=== PATIENT | female | born 1945 | race Caucasian/White ===

== ENCOUNTER 2020-04-20 12:58 | Inpatient (IN) | payer MEDICARE, BC ==
--- NOTE | 2020-04-20 14:12 | ER Document Report ---
ED Medical Screen (RME) - General Chief Complaint: Chest Pain Stated Complaint: CHEST PAIN Time Seen by Provider: 04/20/20 14:02 Primary Care Provider: CINDY SCHUSTER [Primary Care Provider] - Follow up as needed Mode of Arrival: Ambulatory Information source: Patient Notes: 75-year-old female presented to ED for chest pain that started at 1145 this morning. She states he went through her shoulder upper jaw upper neck. She states she is feeling better now. She states she was nauseated earlier but she is not nauseated now because she took some Zofran. She is on a blood thinner for TIA. She does have a history of high blood pressure and cholesterol. Use of cigarettes alcohol or tobacco. She is here with her . Patient is alert oriented respirations regular nonlabored speaking in full sentences. She is in a wheelchair at this time. I have asked the nurse to go back and let the charge nurse know that this patient needs to go straight back with her symptoms at her age. I have greeted and performed a rapid initial assessment of this patient. A comprehensive ED assessment and evaluation of the patient, analysis of test results and completion of medical decision making process will be conducted by an additional ED providers. - Related Data Allergies/Adverse Reactions: codeine Allergy (Verified 04/20/20 13:44) Hives Physical Exam - Vital signs Vitals: Temp Pulse Resp BP Pulse Ox 98.0 F 72 16 152/89 H 98 04/20/20 13:04 04/20/20 13:04 04/20/20 13:04 04/20/20 13:04 04/20/20 13:04 Course - Vital Signs Vital signs: Temp Pulse Resp BP Pulse Ox 98.0 F 72 16 152/89 H 98 04/20/20 13:04 04/20/20 13:04 04/20/20 13:04 04/20/20 13:04 04/20/20 13:04 Doctor's Discharge - Discharge Referrals: CINDY SCHUSTER [Primary Care Provider] - Follow up as needed
[2020-04-20 15:07] LABS: ABSOLUTE EOSINOPHILS # (AUTO) 0.1 10^3/uL (0.0-0.6); ABSOLUTE LYMPHOCYTES (AUTO) 1.5 10^3/uL (0.5-4.7); ABSOLUTE MONOCYTES (AUTO) 0.5 10^3/uL (0.1-1.4); ABSOLUTE NEUT (AUTO) 4.7 10^3/uL (1.7-8.2); BASOPHILS % (AUTO) 0.7 % (0-2); EOSINOPHILS % (AUTO) 1.9 % (0-6); HEMATOCRIT 34.9 % (36.0-47.0); HEMOGLOBIN 12.2 g/dL (12.0-15.5); LYMPHOCYTES % (AUTO) 21.5 % (13-45); MEAN CORPUSCULAR HEMOGLOBIN 31.7 pg (27.0-33.4); MEAN CORPUSCULAR HGB CONC 34.9 g/dL (32.0-36.0); MEAN CORPUSCULAR VOLUME 91 fl (80-97); MONOCYTES % (AUTO) 6.7 % (3-13); PLATELET COUNT 206 10^3/uL (150-450); RED BLOOD COUNT 3.85 10^6/uL (3.72-5.28); SEGMENTED NEUTROPHILS % (AUTO) 69.2 % (42-78); TOTAL CELLS COUNTED % (AUTO) 100 %; WHITE BLOOD COUNT 6.8 10^3/uL (4.0-10.5)
--- NOTE | 2020-04-20 15:21 | RADIOLOGY REPORT (SQ) ---
EXAM DESCRIPTION: CHEST 2 VIEWS IMAGES COMPLETED DATE/TIME: 04/20/2020 3:12 pm REASON FOR STUDY: chest pain COMPARISON: None. EXAM PARAMETERS: NUMBER OF VIEWS: two views TECHNIQUE: Digital Frontal and Lateral radiographic views of the chest acquired. RADIATION DOSE: NA LIMITATIONS: none FINDINGS: LUNGS AND PLEURA: Lung juarez are hyperexpanded with increase in the retrosternal airspace . No consolidation or effusions. MEDIASTINUM AND HILAR STRUCTURES: No masses or contour abnormalities. HEART AND VASCULAR STRUCTURES: Heart normal size. No evidence for failure. BONES: No acute findings. HARDWARE: None in the chest. OTHER: No other significant finding. IMPRESSION: COPD. No acute findings. TECHNICAL DOCUMENTATION: JOB ID: [id number] 2010 [employer]- All Rights Reserved Reading location - IP/workstation name: [email or web address]
[2020-04-20 15:24] LABS: ALBUMIN 4.9 g/dL (3.5-5.0); ALKALINE PHOSPHATASE 70 U/L (38-126); ANION GAP 9 (5-19); ASPARTATE AMINO TRANSFERASE 33 U/L (14-36); BILIRUBIN,TOTAL 0.3 mg/dL (0.2-1.3); BLOOD UREA NITROGEN 23 mg/dL (7-20); CALCIUM 9.9 mg/dL (8.4-10.2); CARBON DIOXIDE 23 mmol/L (22-30); CHLORIDE 101 mmol/L (98-107); CREATINE KINASE 149 U/L (30-135); GLUCOSE 101 mg/dL (75-110); POTASSIUM 5.6 mmol/L (3.6-5.0); TOTAL PROTEIN 7.3 g/dL (6.3-8.2)
[2020-04-20] MEDS ORDERED: LIDOCAINE 2% VISCOUS SOLN 15 ML UDCUP PO ONE (15:34)
[2020-04-20] MEDS ORDERED: MAG HYDROX/AL HYDROX/SIMETH SUSP 30 ML UDCUP PO ONE (15:34)
[2020-04-20] MEDS ORDERED: NORMAL SALINE 1000 ML 1,000 ML IV ONE ×2 (15:35→15:45)
[2020-04-20 15:36] LABS: CREATINE KINASE MB 9.75 ng/mL (<4.55)
[2020-04-20 15:39] LABS: TROPONIN I 2.22 ng/mL
[2020-04-20] MEDS ORDERED: ENOXAPARIN SODIUM INJ 80 MG/0.8 ML DISP.SYRIN SUBCUT ONE (15:47)
--- NOTE | 2020-04-20 15:58 | ER Document Report ---
Entered by JEOVANY VILLAFANA SCRIBE 04/20/20 1540 Acting as scribe for:COURTNEY NELSON MD ED General - General Chief Complaint: Chest Pain Stated Complaint: CHEST PAIN Time Seen by Provider: 04/20/20 14:02 Mode of Arrival: Ambulatory Information source: Patient Notes: This 75 year old female patient presents to the emergency department today with complaints of chest pain which began this morning at 11:45 AM. She reports that she was sitting down when her pain began and she had not done anything exertional prior to the pain beginning. Patient reports that the pain remained constant for about an hour and a half and it seemed to radiate into her upper back, across her shoulder blades, into her neck and the left lower jaw. Patient took a BC with aspirin and caffeine prior to arrival. Patient is on Plavix and has been for the last 3 to 4 years due to prior TIA. Patient has had nausea and what she describes as a migraine headache for the last 4 days. Patient denies vomiting. The patient took "a little bit" of a [employer] extra strength headache powder on the way to the hospital. 1 complete powder contains 520 mg of aspirin. - Related Data Allergies/Adverse Reactions: codeine Allergy (Verified 04/20/20 13:44) Hives Past Medical History - General Information source: Patient - Social History Smoking Status: Never Smoker Cigarette use (# per day): No Frequency of alcohol use: None Drug Abuse: None Lives with: Family Family History: Reviewed & Not Pertinent - Past Medical History Cardiac Medical History: Reports: Hx Hypercholesterolemia, Hx Hypertension Neurological Medical History: Reports: Hx Migraine, Other - TIA Past Surgical History: Reports: Hx Cholecystectomy, Hx Hysterectomy, Other - Lumbar disectomy. Left lower lobe resection. Brain surgery for benign tumor Review of Systems - Review of Systems Constitutional: No symptoms reported EENT: No symptoms reported Cardiovascular: See HPI, Chest pain Respiratory: No symptoms reported Gastrointestinal: See HPI, Nausea. denies: Vomiting Genitourinary: No symptoms reported Female Genitourinary: No symptoms reported Musculoskeletal: No symptoms reported Skin: No symptoms reported Hematologic/Lymphatic: No symptoms reported Neurological/Psychological: See HPI, Headaches -: Yes All other systems reviewed and negative Physical Exam - Vital signs Vitals: Temp Pulse Resp BP Pulse Ox 98.0 F 72 16 152/89 H 98 04/20/20 13:04 04/20/20 13:04 04/20/20 13:04 04/20/20 13:04 04/20/20 13:04 - Notes Notes: Physical Exam: General: Alert, appears well. HEENT: Normocephalic. Atraumatic. PERRL. Extraocular movements intact. Oropharynx clear. Neck: Supple. Non-tender. Respiratory: No respiratory distress. Clear and equal breath sounds bilaterally. Sternal and left parasternal chest wall tenderness with palpation. Cardiovascular: Regular rate and rhythm. Abdominal: Tenderness with palpation in the epigastrium. No distension. Normal Bowel Sounds. Back: No gross abnormalities. Extremities: Moves all four extremities. Upper extremities: Normal inspection. Normal ROM. Lower extremities: Normal inspection. No edema. Normal ROM. Neurological: Normal cognition. AAOx4. Normal speech. Psychological: Normal affect. Normal Mood. Skin: Warm. Dry. Normal color. Course - Re-evaluation Re-evalutation: 04/20/20 16:06 The patient reports that her epigastric pain is gone after the GI cocktail. On palpation there is no epigastric tenderness now. She has not had any chest pain since she got here. The patient reports she took all of her medications this morning including her Plavix. She also reported taking part of a [employer] extra strength headache powder so she may have had between 200 and 300 mg of aspirin. She will be given a dose of Lovenox 68mg. Her initial troponin was 2.21 04/20/20 18:39 The hospitalist for [facility] at first accepted the patient. Later the facility refused the patient because we were unable to do a rapid COVID test prior to transfer. Dr. Echevarria was consulted with [facility], and he stated that he would be able to do a cardiac catheterization at [place] tomorrow and she needed to be admitted to the hospitalist service and not take her Plavix after today. Dr. Oconnor from the hospitalist service at [facility] was contacted, he wanted to speak with Dr. Echevarria first, before agreeing to admit the patient here. 04/20/20 18:41 The repeat troponin came back at 7.76 04/20/20 19:01 Dr. Oconnor called back and stated that he would admit the patient to [facility]. - Vital Signs Vital signs: Temp Pulse Resp BP Pulse Ox 98.0 F 72 14 160/88 H 98 04/20/20 13:04 04/20/20 13:04 04/20/20 17:01 04/20/20 17:01 04/20/20 17:01 - Laboratory Result Diagrams: 04/20/20 14:48 04/20/20 14:48 Laboratory results interpreted by me: 04/20/20 04/20/20 04/20/20 14:48 14:48 14:48 Hct 34.9 L Sodium 132.7 L Potassium 5.6 H BUN 23 H Creatinine 1.46 H Est GFR ( Amer) 42 L Est GFR (MDRD) Non-Af 35 L Creatine Kinase 149 H CK-MB (CK-2) 9.75 H - Diagnostic Test Radiology reviewed: Image reviewed, Reports reviewed - Chest x-ray shows COPD, no acute findings. - EKG Interpretation by Me EKG shows normal: Sinus rhythm, Sheridan, Intervals. abnormal: QRS Complexes - Computer reads probable anteroseptal infarct of indeterminate age, and probable posterior infarct., ST-T Waves - ST depression noted in leads II and F and leads V3 through V5 Rate: Normal - 73 Rhythm: NSR When compared to previous EKG there are: Previous EKG unavailable Critical Care Note - Critical Care Note Total time excluding time spent on procedures (mins): 40 Comments: At least 40 minutes was spent in evaluating the patient getting history physical following lab work and repeat troponins which were climbing rapidly. Patient was discussed with the hospitalist at [facility], and the patient was accepted. The patient was then refused due to our inability to COVID test. The patient's care was then discussed with the hospitalist at [facility], and the topstitcher zigzag from [facility] who would be here in our [facility] tomorrow to do a cardiac catheterization. Patient was eventually admitted to [facility]. Discharge - Discharge Clinical Impression: Non-STEMI (non-ST elevated myocardial infarction), Hyperkalemia Condition: Stable Disposition: ADMITTED INPATIENT Admitting Provider: Elvin (Hospitalist) Unit Admitted: IMCU I personally performed the services described in the documentation, reviewed and edited the documentation which was dictated to the scribe in my presence, and it accurately records my words and actions.
[2020-04-20] MEDS ORDERED: ONDANSETRON HCL INJ/PF 4 MG/2 ML SDV IV PRN (18:59)
[2020-04-20] MEDS ORDERED: ACETAMINOPHEN 325 MG TABLET PO PRN (18:59)
[2020-04-20] MEDS ORDERED: MAG HYDROX/AL HYDROX/SIMETH SUSP 30 ML UDCUP PO PRN (19:06)
[2020-04-20] MEDS ORDERED: ASPIRIN 81 MG TABLET, CHEWABLE PO ONE (19:08)
[2020-04-20] MEDS ORDERED: IPRATROPIUM/ALBUTEROL 0.5-2.5 MG/3 ML AMPUL NEB PRN (19:09)
[2020-04-20] MEDS ORDERED: NITROGLYCERIN 0.4 MG/TAB 25 TAB/BOTTLE SL PRN (19:09)
[2020-04-20] MEDS ORDERED: TIZANIDINE HCL 4 MG TABLET PO PRN (19:09)
[2020-04-20] MEDS ORDERED: MORPHINE SULFATE 10 MG/ML INJ IV PRN (19:09)
[2020-04-20] MEDS ORDERED: HYDRALAZINE HCL 10 MG TABLET PO PRN (19:18)
--- NOTE | 2020-04-20 19:31 | PDOC H&P ---
History of Present Illness Patient complains of: Chest pain History of Present Illness: KRISTINA DAI is a 75 year old female with a history of TIA, reflux, migraines, who presents to the hospital for evaluation of acute onset substernal chest pain be started at 1145 this morning. The pain was pressure-like and radi ated to her neck and left arm as well as her back. No particular exacerbating or alleviating factors noted at that time. It lasted about 1-1/2 hours then resolved. Currently patient is chest pain-free besides having a little bit of epigastric pain which responded to GI cocktail in the ER. She also endorses some shortness of breath which is mild. She denies any orthopnea. She denies any prior history of heart attacks and any history of any cardiac disease. She takes daily Plavix for her TIA as well as 10 mg of atorvastatin nightly. Past Medical History Cardiac Medical History: Reports: Hyperlipidema Neurological Medical History: Reports: Migraine, Other - TIA Past Surgical History Past Surgical History: Reports: Cholecystectomy, Hysterectomy, Other - Lumbar disectomy. Left lower lobe resection. Brain surgery for benign tumor Social History Lives with: Family Smoking Status: Never Smoker Frequency of Alcohol Use: None Hx Recreational Drug Use: No - Advance Directive Resuscitation Status: Full Code Family History Family History: Hypertension, Other - Cardiac disease in her brother Parental Family History Reviewed: Yes Children Family History Reviewed: Yes Sibling(s) Family History Reviewed.: Yes Medication/Allergy Allergies/Adverse Reactions: codeine Allergy (Verified 04/20/20 13:44) Hives Review of Systems Constitutional: ABSENT: chills, fatigue, fever(s) Eyes: ABSENT: visual disturbances Nose, Mouth, and Throat: PRESENT: headache(s) - Chronic migraines Cardiovascular: ABSENT: edema, orthropnea Respiratory: ABSENT: cough Gastrointestinal: PRESENT: abdominal pain, nausea. ABSENT: vomiting Genitourinary: ABSENT: dysuria Integumentary: PRESENT: diaphoresis Neurological: PRESENT: dizziness - Lightheadedness for past week. ABSENT: syncope Endocrine: ABSENT: polyuria Hematologic/Lymphatic: ABSENT: easy bruising Allergic/Immunologic: ABSENT: seasonal rhinorrhea Physical Exam Vital Signs: Temp Pulse Resp BP Pulse Ox 98.0 F 72 14 160/88 H 98 04/20/20 13:04 04/20/20 13:04 04/20/20 17:01 04/20/20 17:01 04/20/20 17:01 Intake & Output 04/19/20 04/20/20 04/21/20 06:59 06:59 06:59 Weight 68.039 kg General appearance: PRESENT: no acute distress, cooperative Head exam: PRESENT: normocephalic Eye exam: PRESENT: EOMI Neck exam: ABSENT: JVD Respiratory exam: PRESENT: clear to auscultation jaison, symmetrical, unlabored. ABSENT: tachypnea, wheezes Cardiovascular exam: PRESENT: RRR, +S1, +S2. ABSENT: bradycardia, gallop, irregular rhythm, rubs, tachycardia GI/Abdominal exam: PRESENT: soft, tenderness - Epigastric. ABSENT: distended, firm, guarding, rebound, rigid Extremities exam: ABSENT: calf tenderness, pedal edema Neurological exam: PRESENT: alert, awake, oriented to person, oriented to place, oriented to time, oriented to situation Psychiatric exam: ABSENT: agitated, anxious Skin exam: ABSENT: jaundice Results Laboratory Results: 04/20/20 14:48 04/20/20 14:48 04/20/20 04/20/20 04/20/20 14:48 14:48 14:48 WBC 6.8 RBC 3.85 Hgb 12.2 Hct 34.9 L MCV 91 MCH 31.7 MCHC 34.9 RDW 14.0 Plt Count 206 Seg Neutrophils % 69.2 Sodium 132.7 L Potassium 5.6 H Chloride 101 Carbon Dioxide 23 Anion Gap 9 BUN 23 H Creatinine 1.46 H Est GFR ( Amer) 42 L Glucose 101 Calcium 9.9 Total Bilirubin 0.3 AST 33 Alkaline Phosphatase 70 Total Protein 7.3 Albumin 4.9 Lipase 235.2 04/20/20 04/20/20 04/20/20 14:48 14:48 17:42 Creatine Kinase 149 H CK-MB (CK-2) 9.75 H Troponin I 2.220 7.760 Impressions: Chest X-Ray 04/20/20 00:00 IMPRESSION: COPD. No acute findings. Assessment and Plan - Diagnosis (1) Non-ST elevation myocardial infarction (NSTEMI) Is this a current diagnosis for this admission?: Yes Plan: Patient is clearly suffered an NSTEMI. EKG shows Q waves in V1/V2 likely septal involvement but no RUCHI. Troponin trending up 2.[address] Enrrique Echevarria was consulted by ER and have spoken to him as well to confirm that he will be doing a PCI with stenting if needed [depending on complexity of lesion] tomorrow morning at 9 AM. Recommends Lovenox every 12 hours Aspirin load administered. Continue on aspirin and Plavix. Start on beta-enrrique and high-dose statin Monitor on telemetry. Serial EKGs and serial troponins Currently hemodynamically stable and chest pain-free. Check echo, lipid panel, A1c, TSH (2) Hyperkalemia Is this a current diagnosis for this admission?: Yes Plan: Likely secondary to kidney disease and potentially losartan. Will hold losartan today. Can resume if hyperkalemia resolves. IV hydration was given in the ER. We will recheck BMP. No EKG changes consistent with hyperkalemia currently. (3) Elevated serum creatinine Is this a current diagnosis for this admission?: Yes Plan: Unknown baseline. Monitor response to fluid administration. Already received 2 L in the ER. Hold off on further fluids. (4) Hypertension Qualifiers: Hypertension type: essential hypertension Qualified Code(s): I10 - Essential (primary) hypertension Is this a current diagnosis for this admission?: Yes Plan: We will start relieving hyperkalemia. Will use hydralazine as needed. - Time Time Spent with patient: 35 or more minutes Anticipated Discharge Disposition: Home, Self Care Anticipated Discharge Timeframe: within 72 hours
[2020-04-20 20:23] LABS: ANION GAP 8 (5-19); BLOOD UREA NITROGEN 22 mg/dL (7-20); CALCIUM 9.7 mg/dL (8.4-10.2); CARBON DIOXIDE 23 mmol/L (22-30); CHLORIDE 102 mmol/L (98-107); GLUCOSE 93 mg/dL (75-110); POTASSIUM 5.1 mmol/L (3.6-5.0)
--- NOTE | 2020-04-20 21:36 | EKG REPORT ---
SEVERITY:- NORMAL ECG - SINUS RHYTHM : Confirmed by: Lavelle Forte 20-Apr-2020 21:35:53
--- NOTE | 2020-04-20 21:36 | EKG REPORT ---
SEVERITY:- ABNORMAL ECG - SINUS RHYTHM PROBABLE ANTEROSEPTAL INFARCT, AGE INDETERM : Confirmed by: Lavelle Forte 20-Apr-2020 21:36:13
[2020-04-20] MEDS: FAMOTIDINE 20 MG TABLET PO SCH (22:00)
[2020-04-20] MEDS: METOPROLOL TARTRATE 50 MG TABLET PO SCH (22:00)
[2020-04-20] MEDS ORDERED: ATORVASTATIN CALCIUM 80 MG TABLET PO SCH (22:00)
[2020-04-20] MEDS ORDERED: ENOXAPARIN SODIUM INJ 80 MG/0.8 ML DISP.SYRIN SUBCUT SCH (22:00)
[2020-04-20 23:07] LABS: APPEARANCE,URINE CLEAR; BILIRUBIN,URINE NEGATIVE (NEGATIVE); COLOR,URINE STRAW; GLUCOSE, URINE NEGATIVE (NEGATIVE); KETONES,URINE NEGATIVE (NEGATIVE); LEUKOCYTE ESTERASE,URINE NEGATIVE (NEGATIVE); NITRITE,URINE NEGATIVE (NEGATIVE); PROTEIN,URINE NEGATIVE (NEGATIVE); URINE SPECIFIC GRAVITY 1.009; UROBILINOGEN,URINE NEGATIVE mg/dL (<2.0)
[2020-04-21] MEDS ORDERED: VERAPAMIL HCL 5 MG, LIDOCAINE HCL/PF 4 ML, NORMAL SALINE 12 ML, NITROGLYCERIN/D5W 0.4 M... IV PRN ×5 (05:00)
[2020-04-21 05:09] LABS: HEMATOCRIT 31.1 % (36.0-47.0); HEMOGLOBIN 10.8 g/dL (12.0-15.5); MEAN CORPUSCULAR HEMOGLOBIN 31.4 pg (27.0-33.4); MEAN CORPUSCULAR HGB CONC 34.8 g/dL (32.0-36.0); MEAN CORPUSCULAR VOLUME 90 fl (80-97); PLATELET COUNT 154 10^3/uL (150-450); RED BLOOD COUNT 3.45 10^6/uL (3.72-5.28); RED CELL DISTRIBUTION WIDTH 13.9 % (11.5-14.0); WHITE BLOOD COUNT 4.3 10^3/uL (4.0-10.5)
[2020-04-21 05:20] LABS: INTERNATIONAL RATION (INR) 1.14; PROTHROMBIN TIME 14.8 SEC (11.4-15.4)
[2020-04-21 05:21] LABS: PARTIAL THROMBOPLASTIN TIME 35.9 SEC (23.5-35.8)
[2020-04-21 05:25] LABS: ANION GAP 8 (5-19); BLOOD UREA NITROGEN 20 mg/dL (7-20); CARBON DIOXIDE 22 mmol/L (22-30); CHLORIDE 108 mmol/L (98-107); CHOLESTEROL 185.12 mg/dL (0-200); GLUCOSE 83 mg/dL (75-110); PHOSPHORUS 3.2 mg/dL (2.5-4.5); POTASSIUM 4.6 mmol/L (3.6-5.0)
[2020-04-21 05:36] LABS: DIRECT LDL 56 mg/dL (<100); TRIGLYCERIDES 680 mg/dL (<150)
[2020-04-21 05:39] LABS: TROPONIN I 4.84 ng/mL
[2020-04-21] MEDS ORDERED: ENOXAPARIN SODIUM INJ 80 MG/0.8 ML DISP.SYRIN SUBCUT SCH (06:00)
[2020-04-21] MEDS ORDERED: FENTANYL CITRATE INJ/PF 100 MCG/2 ML AMPUL ONE (07:57)
[2020-04-21] MEDS ORDERED: MIDAZOLAM 2 MG/2 ML INJ ONE (07:57)
[2020-04-21] MEDS ORDERED: HEPARIN SOD (PORCINE) 1,000 UNIT/ML 10 ML VIAL ONE (07:58)
[2020-04-21] MEDS ORDERED: LIDOCAINE 1% INJ-PF (10 MG/ML) 30 ML SDV ONE (07:59)
[2020-04-21] MEDS ORDERED: HEPARIN SODIUM,PORCINE/D5W 0 UNIT/0 ML RTUINJ IV ONE (08:00)
[2020-04-21] MEDS ORDERED: HEPARIN SODIUM,PORCINE/NS/PF 2,000 UNIT/1,000 ML RTUINJ IV ONE (08:08)
[2020-04-21] MEDS ORDERED: DIPHENHYDRAMINE HCL 25 MG CAPSULE ONE (09:22)
[2020-04-21] MEDS ORDERED: DIAZEPAM 5 MG TABLET ONE (09:23)
--- NOTE | 2020-04-21 09:27 | PDOC CONSULTATION ---
Consultation Consult Date: 04/21/20 Provider Consulted: SHERRILL MALONEY Consult reason:: NSTEMI History of Present Illness Admission Date/PCP: 04/20/20 19:10 Patient complains of: chest pain History of Present Illness: KRISTINA DAI is a 75 year old female With hypertension, hyperlipidemia, history of transient ischemic attack on chronic Plavix with migraines, gastroesophageal reflux disease admitted for chest pain. Patient had chest pressure that radiated to neck and left arm around 11:45 AM on April 20, 2020. She had some shortness of breath of mild etiology. She felt it may be GERD related and sought medical attention to the ER for which she did have some relief with GI cocktail but subsequently was noted to have elevated troponin values and was admitted for non-STEMI. She was placed on aspirin had already been on statin therapy and Lovenox was initiated. She was hemodynamically stable and had no recurrence of chest pain or chest pressure. 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 Left lower lobe resection. 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 [employer] - Advance Directive Resuscitation Status: Full Code Family History Family History: Reviewed & Not Pertinent, CAD - Brother Family History: Father at 56 due to COPD related complications, Mother in her 90s from Pneumonia with h/o pernicious anemia Parental Family History Reviewed: No - not in parents , but in brother Children Family History Reviewed: No - one son described as healthy works as c [employer] contractor and lives in [place] Sibling(s) Family History Reviewed.: No Medication/Allergy Home Medications: Atorvastatin Calcium [Lipitor 10 mg Tablet] 10 mg PO QHS 04/20/20 Butalb/Acetaminophen/Caffeine [Fioricet (50-325-40 mg) Tablet] 1 tab PO Q8HP PRN 04/20/20 Calcium Carbonate/Vitamin D3 [Calcium 500 mg-Vit D3 600 Unit] 1 each PO DAILY 04/20/20 Citalopram Hydrobromide [Celexa 20 mg Tablet] 20 mg PO DAILY 04/20/20 Clopidogrel Bisulfate [Plavix 75 mg Tablet] 75 mg PO DAILY 04/20/20 Cyanocobalamin (Vitamin B-12) [Vitamin B-12 Inj 1000 Mcg/1 ml Vial] 1,000 mcg IM .MONTHLY 04/20/20 Famotidine [Pepcid] 20 mg PO BID 04/20/20 Fluticasone Propionate [Flonase Nasal Ute 50 Mcg/Ute 16 gm] 2 spray NASL DAILY 04/20/20 Ipratropium [place] [Atrovent 0.06% Nasal Ute] 2 spray NASL DAILYP PRN 04/20/20 Losartan Potassium [Cozaar 25 mg Tablet] 25 mg PO DAILY 04/20/20 Nortriptyline HCl [Pamelor] 50 mg PO QHS 04/20/20 Ondansetron HCl [Zofran] 8 mg PO DAILYP PRN 04/20/20 Tizanidine HCl 2 mg PO Q8 04/20/20 Allergies/Adverse Reactions: codeine Allergy (Verified 04/20/20 13:44) Hives Review of Systems Constitutional: PRESENT: headache(s) Cardiovascular: PRESENT: chest pain, dyspnea on exertion Respiratory: PRESENT: other - h/o hemoptysis associated with pre-treatment of asperigillosis ( reoslved ). Gastrointestinal: PRESENT: heartburn Musculoskeletal: PRESENT: back pain Neurological: PRESENT: memory loss Psychiatric: PRESENT: depression Allergic/Immunologic: PRESENT: seasonal rhinorrhea Physical Exam Vital Signs: Temp Pulse Resp BP Pulse Ox 97.6 F 64 19 141/69 H 95 04/21/20 03:16 04/21/20 06:56 04/21/20 03:16 04/21/20 03:16 04/21/20 03:16 Intake & Output 04/20/20 04/21/20 04/22/20 06:59 06:59 06:59 Intake Total 1000 Output Total 1675 Balance -675 Weight 66.7 kg General appearance: PRESENT: no acute distress Head exam: PRESENT: atraumatic Eye exam: PRESENT: EOMI Mouth exam: PRESENT: moist Neck exam: ABSENT: carotid bruit, JVD, lymphadenopathy, thyromegaly Respiratory exam: PRESENT: clear to auscultation jaison Cardiovascular exam: PRESENT: RRR Pulses: PRESENT: normal carotid pulses Vascular exam: PRESENT: normal capillary refill GI/Abdominal exam: PRESENT: hypoactive bowel sounds Musculoskeletal exam: PRESENT: ambulatory Neurological exam: PRESENT: alert Psychiatric exam: PRESENT: anxious Results Laboratory Results: 04/21/20 04:12 04/21/20 04:12 04/20/20 04/20/20 04/20/20 14:48 14:48 14:48 WBC 6.8 RBC 3.85 Hgb 12.2 Hct 34.9 L MCV 91 MCH 31.7 MCHC 34.9 RDW 14.0 Plt Count 206 Seg Neutrophils % 69.2 Sodium 132.7 L Potassium 5.6 H Chloride 101 Carbon Dioxide 23 Anion Gap 9 BUN 23 H Creatinine 1.46 H Est GFR ( Amer) 42 L Glucose 101 Calcium 9.9 Phosphorus Magnesium Total Bilirubin 0.3 AST 33 Alkaline Phosphatase 70 Total Protein 7.3 Albumin 4.9 Triglycerides Cholesterol LDL Cholesterol Direct HDL Cholesterol Lipase 235.2 TSH Urine Color Urine Appearance Urine pH Ur Specific [place] Urine Protein Urine Glucose (UA) Urine Ketones Urine Blood Urine Nitrite Ur Leukocyte Esterase Urine WBC (Auto) Urine RBC (Auto) 04/20/20 04/20/20 04/21/20 17:42 22:00 04:12 WBC 4.3 RBC 3.45 L Hgb 10.8 L Hct 31.1 L MCV 90 MCH 31.4 MCHC 34.8 RDW 13.9 Plt Count 154 Seg Neutrophils % Sodium 133.0 L Potassium 5.1 H Chloride 102 Carbon Dioxide 23 Anion Gap 8 BUN 22 H Creatinine 1.48 H Est GFR ( Amer) 41 L Glucose 93 Calcium 9.7 Phosphorus Magnesium Total Bilirubin AST Alkaline Phosphatase Total Protein Albumin Triglycerides Cholesterol LDL Cholesterol Direct HDL Cholesterol Lipase TSH Urine Color STRAW Urine Appearance CLEAR Urine pH 6.0 Ur Specific [place]born 1.009 Urine Protein NEGATIVE Urine Glucose (UA) NEGATIVE Urine Ketones NEGATIVE Urine Blood NEGATIVE Urine Nitrite NEGATIVE Ur Leukocyte Esterase NEGATIVE Urine WBC (Auto) 1 Urine RBC (Auto) 0 04/21/20 04/21/20 04:12 04:12 WBC RBC Hgb Hct MCV MCH MCHC RDW Plt Count Seg Neutrophils % Sodium 138.3 Potassium 4.6 Chloride 108 H Carbon Dioxide 22 Anion Gap 8 BUN 20 Creatinine 1.33 H Est GFR ( Amer) 47 L Glucose 83 Calcium 9.0 Phosphorus 3.2 Magnesium 2.5 H Total Bilirubin AST Alkaline Phosphatase Total Protein Albumin Triglycerides 680 H Cholesterol 185.12 LDL Cholesterol Direct 56 HDL Cholesterol 39 L Lipase TSH 3.45 Urine Color Urine Appearance Urine pH Ur Specific [place]born Urine Protein Urine Glucose (UA) Urine Ketones Urine Blood Urine Nitrite Ur Leukocyte Esterase Urine WBC (Auto) Urine RBC (Auto) 04/20/20 04/20/20 04/20/20 14:48 14:48 17:42 Creatine Kinase 149 H CK-MB (CK-2) 9.75 H Troponin I 2.220 7.760 NT-Pro-B Natriuret Pep 04/20/20 04/21/20 22:25 04:12 Creatine Kinase CK-MB (CK-2) Troponin I 9.690 4.840 NT-Pro-B Natriuret Pep 561 H Impressions: Chest X-Ray 04/20/20 00:00 IMPRESSION: COPD. No acute findings. Assessment & Plan - Diagnosis (1) Non-ST elevation myocardial infarction (NSTEMI) Is this a current diagnosis for this admission?: Yes Plan: Discussed options for cardiac catheterization with risk and benefits expressed to patient not limited to bleeding blood vessel injury contrast nephropathy need for urgent coronary bypass grafting requiring transfer to outside facility preferably canalized if site available Continue aggressive risk factor modification with aspirin and statin therapy Further results pend upon findings at cardiac catheterization
[2020-04-21] MEDS ORDERED: NORMAL SALINE 1000 ML 1,000 ML IV PRN (09:29)
[2020-04-21] MEDS ORDERED: DIAZEPAM 5 MG TABLET PO PRN (09:30)
[2020-04-21] MEDS ORDERED: DIPHENHYDRAMINE HCL 25 MG CAPSULE PO PRN (09:30)
--- NOTE | 2020-04-21 09:37 | EKG REPORT ---
SEVERITY:- BORDERLINE ECG - SINUS RHYTHM BORDERLINE PROLONGED QT INTERVAL : Confirmed by: Lavelle Forte 21-Apr-2020 09:37:24
--- NOTE | 2020-04-21 09:37 | EKG REPORT ---
SEVERITY:- ABNORMAL ECG - SINUS RHYTHM CONSIDER ANTEROSEPTAL INFARCT BORDERLINE PROLONGED QT INTERVAL : Confirmed by: Lavelle Forte 21-Apr-2020 09:37:18
[2020-04-21] MEDS ORDERED: FLUTICASONE NASAL SPRAY 50 MCG/SPRY 120 SPRAY/16 GM NASL SCH (10:00)
[2020-04-21] MEDS ORDERED: ASPIRIN 81 MG TABLET, ENT COATED PO SCH (10:00)
[2020-04-21] MEDS ORDERED: CLOPIDOGREL BISULFATE 75 MG TABLET PO SCH (10:00)
[2020-04-21] MEDS ORDERED: CITALOPRAM HYDROBROMIDE 20 MG TABLET PO SCH (10:00)
--- NOTE | 2020-04-21 11:43 | Operative Report ---
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 After informed consent was obtained the patient was brought into the cardiac catheterization lab. Sterile prep and drape of the right wrist was carried out followed by infiltration with 1% Xylocaine. Using the percutaneous Seldinger technique, a 6 [place]yan[place] Introducer sheath was placed into the right radial artery. Resistance was noted in and around the brachial area and a selective focal angiogram with a 6Fr. Barbeau catheter revealed a tortuous and recurrent brachial arterial loop. Attempt of navigating via a Whooley wire also met with resistance around the loop and it was felt best opted to further proceed by right Femoral approach. The right femoral area ian been previously prepped and draped in sterile technique. Local Anesthesia was obtained using 1 % Xylocaine to the right femeraol area. Selective left and right coronary angiography was performed with a 6 Guyanese JL-4, JR-4 and then AL- 1 pre-formed universal coronary catheter respectively ( JL- for left and JR-4/AL-1 for Right .. The catheter was subsequently introduced in the artery and advanced to the ascending aorta. The aortic valve was crossed and the left ventricle was entered. Repeated measurements of the left heart pressure were made after injection of the contrast agent as used for left ventricle CINE- ography. ANALYSIS OF THE ANGIOGRAM: Selective CINE angiograms were obtained with the injection of contrast material into the left and right coronary ostium and left ventricular cavity. The left ventricular injection demonstrates Normal LV size with preserved EF and normal wall motion . Ejection fraction is 55-60 % . Trace to mild Mitral Regurgitation was noted. No evidence for aortic stenosis by pull back tachnique. The LVEDP was normal at 6 mm Hg. CORONARY ANGIOGRAPHY: Coronary angiography performed in multiple projections revealed the following; LEFT MAIN: Moderate caliber vessels. LEFT CIRCUMFLEX/OBTUSE MARGINAL: Moderate caliber vessel and appears angiographically patent LEFT ANTERIOR DESCENDING/DIAGONAL: Moderate caliber vessel. It appears angiographically patent. RIGHT CORONARY ARTERY: Moderate caliber vessel with a superior angulated takeoff with 20-30% midl proximal plaquing but no obstructive lesion seen. A TR Band was utilized to allow for removal of the arterial sheath and to maintain adequate hemostasis at 12 mL. A right femeraol angiogram was performed that suggested suitable closure via 6 Guyanese Angioseal. She had a prominent ligament and additional maual pressure was applied followed y a Quick C;lot. A Safeguard was applied with 40 ml to assist in maintaining adequate hemostasis. Bedrest for at least 3 hours was noted with removal of the sfaeguard after 2 hours. Impression: Mild RCA plaque, Preserved EF with normal wall motion and no significant left sided heart valve issues. This would lead to a clinical picture more likely to represent a Type 2 Myocardial Infarction than a NSTEMI attributed to epicardial disease. This might be due to Hypertensive aspects associated with a migraine exacerbation. Patient had been on Verapamil and reportedly was held in part due to bradycardia and thus would favor adding amlodipine at 2.5 mg po q pm for Labile Hypertension and continue ECASA 81 mg po q d and Statin Therapy. She is on plavix chronically through Vascular Surgery due to non-obstructive Carotid Disease and may need a f/u carotid doppler through Vascular Surgery and / or Primary Care Provider. Plan: As above - Add Amlodipine 2.5 mg po q pm for Labile Hypertension, continue ECASA / Statin therapy, Defer to her Vascular Surgeon / PCP on plavix and f/u carotid doppler. Ok for disposition home once completed bed rest from femoral approach and groin remains stable. Outpatient f/u offered via [facility] Office [phone]. .
[2020-04-21] MEDS: FAMOTIDINE 20 MG TABLET PO SCH (12:42)
[2020-04-21] MEDS: METOPROLOL TARTRATE 50 MG TABLET PO SCH (12:42)
--- NOTE | 2020-04-21 12:50 | PDOC DISCHARGE SUMMARY ---
Impression - Admit/DC Date/PCP Admission Date/Primary Care Provider: 04/20/20 19:10 Discharge Date: 04/21/20 - Discharge Diagnosis (1) Non-ST elevation myocardial infarction (NSTEMI) Is this a current diagnosis for this admission?: Yes (2) Elevated serum creatinine Is this a current diagnosis for this admission?: Yes (3) Hyperkalemia Is this a current diagnosis for this admission?: Yes (4) Hypertension Is this a current diagnosis for this admission?: Yes - Assessment Summary: Non-ST elevation myocardial infarction likely due to strain and hypertension. No previous laboratory studies in her records at [facility]. Renal function could be her baseline. Hyperkalemia did resolve with fluids. - Additional Information Resuscitation Status: Full Code Discharge Diet: Cardiac Discharge Activity: Activity As Tolerated, Balance Activity w/Rest Referrals: GRISELDA CARSON MD [NO LOCAL MD] - 04/27/20 1:45 pm (Griselda Carson MD Internal Medicine [facility] [place], [place] ) SHERRILL ECHEVARRIA MD [ASSOCIATE] - 04/30/20 8:15 am (Post cath-lab follow-up appointment. 1 to 4 wks.) Prescriptions: Nitroglycerin [Nitrostat 0.4 mg (1/150 Gr) Tabs 25/Bottle] 1 tab SL Q5MP PRN #1 bottle PRN Reason: For Chest Pain Amlodipine Besylate [Norvasc 2.5 mg Tablet] 2.5 mg PO QPM #30 tablet Metoprolol Succinate [Toprol Xl 50 mg Tab.sr] 50 mg PO DAILY #30 tab.sr.24h Home Medications: Atorvastatin Calcium [Lipitor 10 mg Tablet] 10 mg PO QHS 04/20/20 Butalb/Acetaminophen/Caffeine [Fioricet (50-325-40 mg) Tablet] 1 tab PO Q8HP PRN 04/20/20 Calcium Carbonate/Vitamin D3 [Calcium 500 mg-Vit D3 600 Unit] 1 each PO DAILY 04/20/20 Citalopram Hydrobromide [Celexa 20 mg Tablet] 20 mg PO DAILY 04/20/20 Clopidogrel Bisulfate [Plavix 75 mg Tablet] 75 mg PO DAILY 04/20/20 Cyanocobalamin (Vitamin B-12) [Vitamin B-12 Inj 1000 Mcg/1 ml Vial] 1,000 mcg IM .MONTHLY 04/20/20 Famotidine [Pepcid] 20 mg PO BID 04/20/20 Fluticasone Propionate [Flonase Nasal [place] 50 Mcg/[place] 16 gm] 2 spray NASL DAILY 04/20/20 Ipratropium [place] [Atrovent 0.06% Nasal [place]] 2 spray NASL DAILYP PRN 04/20/20 Losartan Potassium [Cozaar 25 mg Tablet] 25 mg PO DAILY 04/20/20 Nortriptyline HCl [Pamelor] 50 mg PO QHS 04/20/20 Ondansetron HCl [Zofran] 8 mg PO DAILYP PRN 04/20/20 Tizanidine HCl 2 mg PO Q8 04/20/20 Amlodipine Besylate [Norvasc 2.5 mg Tablet] 2.5 mg PO QPM #30 tablet 04/21/20 Aspirin [Ecotrin 81 mg EC Tablet] 81 mg PO DAILY tabec 04/21/20 Citalopram Hydrobromide [Celexa 20 mg Tablet] 20 mg PO DAILY tablet 04/21/20 Clopidogrel Bisulfate [Plavix 75 mg Tablet] 75 mg PO DAILY tablet 04/21/20 Famotidine [Pepcid 20 mg Tablet] 20 mg PO Q12 tablet 04/21/20 Fluticasone Propionate [Flonase Nasal [place] 50 Mcg/[place] 16 gm] 1 spray NASL DAILY spray.pump 04/21/20 Metoprolol Succinate [Toprol Xl 50 mg Tab.sr] 50 mg PO DAILY #30 tab.sr.24h 04/21/20 Nitroglycerin [Nitrostat 0.4 mg (1/150 Gr) Tabs 25/Bottle] 1 tab SL Q5MP PRN #1 bottle 04/21/20 History of Present Illiness History of Present Illness: KRISTINA DAI is a 75 year old female with a history of TIA, reflux, migraines, who presents to the hospital for evaluation of acute onset substernal chest pain be started at 1145 this morning. The pain was pressure-like and radiated to her neck and left arm as well as her back. No particular exacerbating or alleviating factors noted at that time. It lasted about 1-1/2 hours then resolved. Currently patient is chest pain-free besides having a little bit of epigastric pain which responded to GI cocktail in the ER. She also endorses some shortness of breath which is mild. She denies any orthopnea. She denies any prior history of heart attacks and any history of any cardiac disease. She takes daily Plavix for her TIA as well as 10 mg of atorvastatin nightly. Hospital Course Hospital Course: The patient had an unremarkable hospital course. She underwent cardiac catheterization this morning. There were no areas of critical stenosis. No intervention was required. Dr. Echevarria did add amlodipine 2.5 mg at night and the patient is no longer on verapamil. Post catheterization protocol for the arterial access points was followed. The patient was allowed to eat and because she tolerated the meal and there was no evidence of bleeding from either the groin or the wrist the patient was able to discharged home. She will follow-up with cardiology at [facility] cardiology office in [place]. Physical Exam Vital Signs: Temp Pulse Resp BP Pulse Ox 97.6 F 64 19 141/69 H 95 04/21/20 10:52 04/21/20 06:56 04/21/20 03:16 04/21/20 03:16 04/21/20 03:16 Intake & Output 04/20/20 04/21/20 04/22/20 06:59 06:59 06:59 Intake Total 1000 Output Total 1675 Balance -675 Weight 66.7 kg General appearance: PRESENT: no acute distress, cooperative, well-developed Respiratory exam: PRESENT: clear to auscultation jaison, symmetrical, unlabored. ABSENT: rales, rhonchi, tachypnea, wheezes Cardiovascular exam: PRESENT: RRR, +S1, +S2. ABSENT: bradycardia, diastolic murmur, irregular rhythm, systolic murmur, tachycardia GI/Abdominal exam: PRESENT: normal bowel sounds, soft. ABSENT: distended, tenderness Rectal exam: PRESENT: deferred Gentrourinary exam: ABSENT: indwelling catheter Extremities exam: ABSENT: pedal edema Neurological exam: PRESENT: alert, awake, oriented to person, oriented to place, oriented to time, oriented to situation, CN II-XII grossly intact. ABSENT: altered Psychiatric exam: PRESENT: appropriate affect. ABSENT: agitated, anxious Results Laboratory Results: WBC 4.3 10^3/uL (4.0-10.5) 04/21/20 04:12 RBC 3.45 10^6/uL (3.72-5.28) L 04/21/20 04:12 Hgb 10.8 g/dL (12.0-15.5) L 04/21/20 04:12 Hct 31.1 % (36.0-47.0) L 04/21/20 04:12 MCV 90 fl (80-97) 04/21/20 04:12 MCH 31.4 pg (27.0-33.4) 04/21/20 04:12 MCHC 34.8 g/dL (32.0-36.0) 04/21/20 04:12 RDW 13.9 % (11.5-14.0) 04/21/20 04:12 Plt Count 154 10^3/uL (150-450) 04/21/20 04:12 Lymph % (Auto) 21.5 % (13-45) 04/20/20 14:48 Harmon % (Auto) 6.7 % (3-13) 04/20/20 14:48 Eos % (Auto) 1.9 % (0-6) 04/20/20 14:48 Baso % (Auto) 0.7 % (0-2) 04/20/20 14:48 Absolute Neuts (auto) 4.7 10^3/uL (1.7-8.2) 04/20/20 14:48 Absolute Lymphs (auto) 1.5 10^3/uL (0.5-4.7) 04/20/20 14:48 Absolute Monos (auto) 0.5 10^3/uL (0.1-1.4) 04/20/20 14:48 Absolute Eos (auto) 0.1 10^3/uL (0.0-0.6) 04/20/20 14:48 Absolute Basos (auto) 0.0 10^3/uL (0.0-0.2) 04/20/20 14:48 Seg Neutrophils % 69.2 % (42-78) 04/20/20 14:48 PT 14.8 SEC (11.4-15.4) 04/21/20 04:12 INR 1.14 04/21/20 04:12 APTT 35.9 SEC (23.5-35.8) H 04/21/20 04:12 Sodium 138.3 mmol/L (137-145) 04/21/20 04:12 Potassium 4.6 mmol/L (3.6-5.0) 04/21/20 04:12 Chloride 108 mmol/L (98-107) H 04/21/20 04:12 Carbon Dioxide 22 mmol/L (22-30) 04/21/20 04:12 Anion Gap 8 (5-19) 04/21/20 04:12 BUN 20 mg/dL (7-20) 04/21/20 04:12 Creatinine 1.33 mg/dL (0.52-1.25) H 04/21/20 04:12 Est GFR ( Amer) 47 (>60) L 04/21/20 04:12 Est GFR (MDRD) Non-Af 39 (>60) L 04/21/20 04:12 Glucose 83 mg/dL (75-110) 04/21/20 04:12 Hemoglobin A1c % 4.8 % (4.7-6.0) 04/21/20 04:12 Calcium 9.0 mg/dL (8.4-10.2) 04/21/20 04:12 Phosphorus 3.2 mg/dL (2.5-4.5) 04/21/20 04:12 Magnesium 2.5 mg/dL (1.6-2.3) H 04/21/20 04:12 Total Bilirubin 0.3 mg/dL (0.2-1.3) 04/20/20 14:48 Direct Bilirubin 0.0 mg/dL (0.0-0.4) 04/20/20 14:48 Neonat Total Bilirubin Not Reportable 04/20/20 14:48 Neonat Direct Bilirubin Not Reportable 04/20/20 14:48 Neonat Indirect Bili Not Reportable 04/20/20 14:48 AST 33 U/L (14-36) 04/20/20 14:48 ALT 15 U/L (<35) 04/20/20 14:48 Alkaline Phosphatase 70 U/L (38-126) 04/20/20 14:48 Creatine Kinase 149 U/L (30-135) H 04/20/20 14:48 CK-MB (CK-2) 9.75 ng/mL (<4.55) H 04/20/20 14:48 Troponin I 4.840 ng/mL 04/21/20 04:12 NT-Pro-B Natriuret Pep 561 pg/mL (<450) H 04/21/20 04:12 Total Protein 7.3 g/dL (6.3-8.2) 04/20/20 14:48 Albumin 4.9 g/dL (3.5-5.0) 04/20/20 14:48 Triglycerides 680 mg/dL (<150) H 04/21/20 04:12 Cholesterol 185.12 mg/dL (0-200) 04/21/20 04:12 LDL Cholesterol Direct 56 mg/dL (<100) 04/21/20 04:12 VLDL Cholesterol, Calc UNABLE TO CALCULATE 04/21/20 04:12 HDL Cholesterol 39 mg/dL (>40) L 04/21/20 04:12 Lipase 235.2 U/L (23-300) 04/20/20 14:48 TSH 3.45 uIU/mL (0.47-4.68) 04/21/20 04:12 Urine Color STRAW 04/20/20 22:00 Urine Appearance CLEAR 04/20/20 22:00 Urine pH 6.0 (5.0-9.0) 04/20/20 22:00 Ur Specific [place] 1.009 04/20/20 22:00 Urine Protein NEGATIVE mg/dL (NEGATIVE) 04/20/20 22:00 Urine Glucose (UA) NEGATIVE mg/dL (NEGATIVE) 04/20/20 22:00 Urine Ketones NEGATIVE mg/dL (NEGATIVE) 04/20/20 22:00 Urine Blood NEGATIVE (NEGATIVE) 04/20/20 22:00 Urine Nitrite NEGATIVE (NEGATIVE) 04/20/20 22:00 Urine Bilirubin NEGATIVE (NEGATIVE) 04/20/20 22:00 Urine Urobilinogen NEGATIVE mg/dL (<2.0) 04/20/20 22:00 Ur Leukocyte Esterase NEGATIVE (NEGATIVE) 04/20/20 22:00 Urine WBC (Auto) 1 /HPF 04/20/20 22:00 Urine RBC (Auto) 0 /HPF 04/20/20 22:00 Squamous Epi Cells Auto <1 /HPF 04/20/20 22:00 Urine Mucus (Auto) RARE /LPF 04/20/20 22:00 Urine Ascorbic Acid NEGATIVE (NEGATIVE) 04/20/20 22:00 04/20/20 04/20/2020 14:48 17:42 22:25 CK-MB (CK-2) 9.75 H Troponin I 2.220 7.760 9.690 NT-Pro-B Natriuret Pep 04/21/20 04:12 CK-MB (CK-2) Troponin I 4.840 NT-Pro-B Natriuret Pep 561 H Impressions: Chest X-Ray 04/20/20 00:00 IMPRESSION: COPD. No acute findings. Plan Health Concerns: Noncritical coronary disease identified. Changes in medication regimen as above. Plan of Treatment: Discontinue verapamil and add amlodipine. Continue Plavix and aspirin daily. Follow low-fat low-sodium diet and follow-up with cardiology Goals: Risk factor modification for coronary disease Time Spent: Greater than 30 Minutes Stroke Is this a Stroke Patient?: No Acute Heart Failure - Is this a Heart Failure Patient?: No
[2020-04-21] MEDS ORDERED: PROCHLORPERAZINE EDISYLATE INJ 10 MG/2 ML VIAL IM ONE (16:00)
[2020-04-21] MEDS ORDERED: KETOROLAC TROMETHAMINE INJ/PF 30 MG/1 ML SDV IV ONE (16:00)
[2020-04-21 17:23] VITALS: BP 152/89
[2020-04-21] MEDS ORDERED: AMLODIPINE BESYLATE 2.5 MG TABLET PO SCH (18:00)
--- NOTE | 2020-04-21 18:06 | XCELERA REPORT ---
[address] [address] Transthoracic Echocardiogram Report Name: KRISTINA DAI Age: 75 yrs Gender: Female : 1945 Patient Status: Inpatient Patient Location: [place] [address]^A Study Date: 04/20/2020 08:11 PM History: DAI Height: 64 in Weight: 150 lb BSA: 1.7 m2 Procedure: A complete two-dimensional transthoracic echocardiogram was performed (2D, M-mode, spectral and color flow Doppler). The study was technically difficult with many images being suboptimal in quality. Reason For Study: [email or web address] Previous Evaluation: No previous studies were available. History: NSTEMI. Ordering Physician: ALIVIA MARTINEZ Performed By: Kerri Knight Interpretation Summary Left ventricular systolic function is normal. The Ejection Fraction estimate is 55-60% The right ventricle is normal in size and function. There is a trace amount of mitral regurgitation There is no aortic valve stenosis There is a trace amount of tricuspid regurgitation There is no pericardial effusion. MMode/2D Measurements & Calculations RVDd: 2.9 cm LVIDd: 3.1 cm FS: 36.6 % Ao root diam: 3.2 cm IVSd: 1.1 cm LVIDs: 2.0 cm EDV(Teich): 37.4 ml Ao root area: 7.9 cm2 LVPWd: 0.95 cm ESV(Teich): 12.0 ml LA dimension: 3.6 cm EF(Teich): 67.9 % Doppler Measurements & Calculations MV E max alejandro: MV P1/2t max alejandro: Ao V2 max: AI max alejandro: 62.7 cm/sec 71.9 cm/sec 165.1 cm/sec 292.8 cm/sec MV A max alejandro: MV P1/2t: 110.3 msec Ao max PG: AI max P.5 cm/sec MVA(P1/2t): 2.0 cm2 10.9 mmHg 34.3 mmHg MV E/A: 0.55 MV dec slope: AI dec slope: 94.1 cm/sec2 191.0 cm/sec2 AI P1/2t: MV dec time: 0.43 sec 911.5 msec LV V1 max PG: PA V2 max: TR max alejandro: AV P1/2t-pr_phl: 5.9 mmHg 95.8 cm/sec 235.4 cm/sec 911.5 msec LV V1 max: PA max P.7 mmHg TR max P.4 cm/sec 22.2 mmHg MV P1/2t-pr_phl: 110.3 msec Left Ventricle The left ventricular cavity is small. There is mild to moderate concentric left ventricular hypertrophy. Left ventricular systolic function is normal. The Ejection Fraction estimate is 55-60%. Doppler measurements suggest impaired left ventricular relaxation, which is associated with grade I/IV or mild diastolic dysfunction. Regional wall motion abnormalities cannot be excluded due to limited visualization. Right Ventricle The right ventricle is normal in size and function. Mitral Valve Calcified mitral apparatus. By Doppler no stenosis-suboptimal interrogation. Valve leaflets are poorly seen. They are calcified but excurison appears to be preserved. There is a trace amount of mitral regurgitation. Aortic Valve The aortic valve opens well. The aortic valve is not well visualized secondary to technical limitations. The aortic valve is mildly calcified. The aortic valve is sclerotic and shows some degree of functional abnormality. There is no aortic valve stenosis. There is a trace amount of aortic regurgitation. Tricuspid Valve The tricuspid valve is not well visualized, but is grossly normal. There is a trace amount of tricuspid regurgitation. Best estimated RVSP is approximately 25-30 mm Hg mm/Hg. Pulmonic Valve The pulmonic valve is not well visualized. There is a mild amount of pulmonic regurgitation. Great Vessels The aortic root is normal size. The inferior vena cava appeared normal and decreased > 50% with respiration (RAP 5-10 mmHg). Effusions There is no pericardial effusion. : ALIVIA MARTINEZ Anil
== END 2020-04-21 18:50 | disposition home or self-care (01) | DRG 282 ==
LOC: ER 12:58 → EH 19:10 → 3W 21:21
PROVIDERS: ADMIT Internal Medicine; ATTEND Hospitalist
PROC: 4A023N7 Measurement of Cardiac Sampling and Pressure, Left Heart, Percutaneous Approach (ICD-10-PCS; principal; 2020-04-20)
PROC: B2161ZZ Fluoroscopy of Right and Left Heart using Low Osmolar Contrast (ICD-10-PCS; 2020-04-20)
PROC: B24BZZ4 Ultrasonography of Heart with Aorta, Transesophageal (ICD-10-PCS; 2020-04-20)
DX: I21.A1 Myocardial infarction type 2 (principal); E87.5 Hyperkalemia; E78.5 Hyperlipidemia, unspecified; I73.9 Peripheral vascular disease, unspecified; N18.9 Chronic kidney disease, unspecified; I12.9 Hypertensive chronic kidney disease with stage 1 through stage 4 chronic kidney disease, or unspecified chronic kidney disease; K21.9 Gastro-esophageal reflux disease without esophagitis; E78.00 Pure hypercholesterolemia, unspecified; Z79.02 Long term (current) use of antithrombotics/antiplatelets; Z79.82 Long term (current) use of aspirin; Z79.899 Other long term (current) drug therapy; Z86.73 Personal history of transient ischemic attack (TIA), and cerebral infarction without residual deficits; Z90.2 Acquired absence of lung [part of]; Z85.42 Personal history of malignant neoplasm of other parts of uterus; Z60.2 Problems related to living alone; Z88.6 Allergy status to analgesic agent; Z82.49 Family history of ischemic heart disease and other diseases of the circulatory system
CPT/HCPCS: 36415; 71046; 80048; 80053; 80061; 81001; 82550; 82553; 83036; 83690; 83735; 83880; 84100; 84443; 84484; 85025; 85027; 85610; 85730; 93005; 93010; 93306; 93458; 96372; 99285; C1769; C1887; C1894; J1644; J1650; J1885; J2250; J2405; J3010; J3490; J7030